=== PATIENT | male | born 1985 | race Caucasian/White ===

== ENCOUNTER → 2016-11-03 | Outpatient (CLI) | payer OTHER ==
[~2016-11-03] MED LIST: NO HOME MEDICATIONS; PROBIOTIC-MAJOR PO; PROTONIX 40MG T40 MG PO; VIBERZI100 MG PO
== END ==
LOC: COL.RAD 08:11
DX: R68.81 Early satiety (principal)
CPT/HCPCS: A9541

== ENCOUNTER → 2017-07-20 | Outpatient (CLI) | payer OTHER | LOC: COL.RAD 09:54 | DX: K44.9 Diaphragmatic hernia without obstruction or gangrene (principal); K21.9 Gastro-esophageal reflux disease without esophagitis | CPT/HCPCS: Q9967 ==

== ENCOUNTER → 2017-08-31 | Outpatient (CLI) | payer OTHER | LOC: COL.RAD 07:27 | DX: N28.89 Other specified disorders of kidney and ureter (principal) ==

== ENCOUNTER 2017-11-15 17:28 | Emergency (ER) | payer OTHER ==
[~2017-11-15] VITALS: Ht 182.9 cm; Wt 72.7 kg
[2017-11-15 17:33] VITALS: TEMP 98.2
[2017-11-15 18:08] LABS: BASO # 0.1 (0.0-0.2); BASO % 1.3 % (0.0-2.0); EOS # 0.4 (0.0-0.7); EOS % 5.9 % (0-4.0); GRAN # 4.2 (1.4-6.5); GRAN % 65.9 % (42.2-75.2); HEMATOCRIT 43.3 % (42.0-52.0); HEMOGLOBIN 14.7 g/dl (13.5-18.0); LYMPH # 1.3 (1.2-3.4); LYMPH % 20.6 % (20.0-51.0); MEAN CELL VOLUME 88 fl (80.0-100.0); MEAN CORPUSCULAR HEMOGLOBIN 30 pg (27.0-31.0); MEAN CORPUSCULAR HGB CONC 34 g/dl (33.0-37.0); MEAN PLATELET VOLUME 10.1 fl (7.4-10.4); MONO # 0.4 (0.1-0.6); MONO % 6.1 % (1.7-9.3); PLATELET COUNT 286 K/mm3 (130-400); RED BLOOD COUNT 4.91 M/mm3 (4.20-5.60); REDCELL DISTRIBUTION WIDTH-CV 13.2 % (11.5-14.5)
[2017-11-15 18:21] LABS: ALANINE AMINOTRANSFERASE 27 U/L (21-72); ALBUMIN 4.9 gm/dL (3.5-5.0); ALKALINE PHOSPHATASE 67 U/L (50-136); ANION GAP 11 mmol/L (7-16); AST,SGOT 27 U/L (15-37); BILIRUBIN,TOTAL 0.6 mg/dL (0.0-1.0); BLOOD UREA NITROGEN 15 mg/dL (9-20); CALCIUM 9.7 mg/dL (8.4-10.2); CARBON DIOXIDE 26 mmol/L (22-30); CHLORIDE 105 mmol/L (98-107); CREATININE, serum 0.84 mg/dL (0.66-1.25); GLUCOSE 114 mg/dL (74-106); LIPASE 34 U/L (23-300); POTASSIUM 3.7 mmol/L (3.4-5.0); SODIUM 142 mmol/L (137-145); TOTAL PROTEIN 7.8 gm/dL (6.4-8.2)
[2017-11-15 18:29] LABS: C-REACTIVE PROTEIN < 0.5 mg/dL (0.0-0.9)
[2017-11-15 19:16] LABS: COLLECTION METHOD CLEAN CATCH
[2017-11-15 19:21] LABS: MUCOUS Present /lpf; PH 6 (5-8); SQUAMOUS EPITHELIAL 0-2 /hpf; URINE APPEARANCE Clear; URINE BACTERIA None Seen /hpf; URINE BILIRUBIN Negative (NEGATIVE); URINE BLOOD 1+ (NEGATIVE); URINE COLOR Yellow; URINE GLUCOSE Negative (NEGATIVE); URINE KETONE Negative (NEGATIVE); URINE LEUKOCYTE ESTERASE Negative (NEGATIVE); URINE NITRATE Negative (NEGATIVE); URINE PROTEIN(semi-quant) Negative (NEGATIVE); URINE RBC 0-2 /hpf
[2017-11-15] MEDS ORDERED: NORCO 325 MG-51 TAB PO (19:33)
[2017-11-15 19:43] VITALS: BP 111/71; PULSE 70
== END 2017-11-15 19:43 | disposition home or self-care (01) ==
LOC: COL.ER 17:28
PROVIDERS: Emergency Medicine
DX: R10.9 Unspecified abdominal pain (principal); K21.9 Gastro-esophageal reflux disease without esophagitis
CPT/HCPCS: J2405; J7030; J7050; Q9967

== ENCOUNTER → 2019-06-15 | Outpatient (CLI) | payer OTHER ==
[~2019-06-15] MED LIST changes: +NORCO 325 MG-51 TAB PO
== END ==
LOC: COL.RAD 09:34
DX: R13.14 Dysphagia, pharyngoesophageal phase (principal); Z98.890 Other specified postprocedural states

== ENCOUNTER → 2019-08-17 | Outpatient (CLI) | payer OTHER | LOC: COL.RAD 07:41 | DX: K21.9 Gastro-esophageal reflux disease without esophagitis (principal); Z98.890 Other specified postprocedural states ==

== ENCOUNTER 2019-10-18 18:07 | Emergency (ER) | payer OTHER ==
[~2019-10-18] VITALS: Ht 182.9 cm; Wt 75.0 kg
[2019-10-18 18:59] LABS: BASO # 0.1 (0.0-0.2); BASO % 1.5 % (0.0-2.0); EOS # 0.4 (0.0-0.7); EOS % 5.9 % (0-4.0); GRAN % 59.1 % (42.2-75.2); HEMATOCRIT 47.1 % (42.0-52.0); HEMOGLOBIN 15.8 g/dl (13.5-18.0); LYMPH # 1.6 (1.2-3.4); LYMPH % 23.9 % (20.0-51.0); MEAN CELL VOLUME 91 fl (80.0-100.0); MEAN CORPUSCULAR HEMOGLOBIN 31 pg (27.0-31.0); MEAN CORPUSCULAR HGB CONC 34 g/dl (33.0-37.0); MONO # 0.6 (0.1-0.6); MONO % 9.5 % (1.7-9.3); PLATELET COUNT 296 K/mm3 (130-400); RED BLOOD COUNT 5.17 M/mm3 (4.20-5.60); REDCELL DISTRIBUTION WIDTH-CV 13.1 % (11.5-14.5)
[2019-10-18] MEDS ORDERED: FLONASEALLERGY NS (19:00)
[2019-10-18 19:14] LABS: ALANINE AMINOTRANSFERASE 23 U/L (21-72); ALBUMIN 4.9 gm/dL (3.5-5.0); ALKALINE PHOSPHATASE 76 U/L (50-136); ANION GAP 10 mmol/L (7-16); AST,SGOT 29 U/L (15-37); BILIRUBIN,TOTAL 0.4 mg/dL (0.0-1.0); BLOOD UREA NITROGEN 15 mg/dL (9-20); CALCIUM 9.6 mg/dL (8.4-10.2); CARBON DIOXIDE 28 mmol/L (22-30); CHLORIDE 104 mmol/L (98-107); CREATININE, serum 0.95 (0.66-1.25); GLUCOSE 90 mg/dL (74-106); LIPASE 47 U/L (23-300); POTASSIUM 4.5 mmol/L (3.4-5.0); SODIUM 142 mmol/L (137-145); TOTAL PROTEIN 8.3 gm/dL (6.4-8.2)
[2019-10-18 19:20] LABS: C-REACTIVE PROTEIN < 0.5 mg/dL (0.0-0.9)
[2019-10-18] MEDS ORDERED: MEDROL 4MG DOSPA4 MG PO (20:10)
[2019-10-18 20:30] VITALS: BP 105/71; PULSE 87; TEMP 98.2
== END 2019-10-18 20:30 | disposition home or self-care (01) ==
LOC: COL.ER 18:07
PROVIDERS: Physician Assistant
DX: R10.84 Generalized abdominal pain (principal); R09.81 Nasal congestion; Z79.51 Long term (current) use of inhaled steroids
CPT/HCPCS: J1885; J2765; J7030; J7512

== ENCOUNTER 2019-10-22 03:48 | Emergency (ER) | payer OTHER ==
[~2019-10-22] VITALS: Ht 182.9 cm; Wt 75.0 kg
[~2019-10-22 03:48] MED LIST changes: +FLONASEALLERGY NS; +MEDROL 4MG DOSPA4 MG PO
[2019-10-22 03:53] VITALS: TEMP 97.9
[2019-10-22 06:41] VITALS: BP 104/81; PULSE 72
== END 2019-10-22 06:42 | disposition home or self-care (01) ==
LOC: COL.ER 03:48
DX: R06.00 Dyspnea, unspecified (principal); F41.9 Anxiety disorder, unspecified

== ENCOUNTER → 2019-11-08 | Outpatient (CLI) | payer OTHER | LOC: COL.RAD 09:30 | DX: R06.02 Shortness of breath (principal) ==

== ENCOUNTER 2021-04-13 02:36 | Emergency (ER) | payer OTHER ==
[~2021-04-13] VITALS: Ht 182.9 cm; Wt 75.0 kg
[2021-04-13 02:40] VITALS: TEMP 98.5
[2021-04-13 02:57] LABS: BASO # 0.1 (0.0-0.2); BASO % 1.4 % (0.0-2.0); EOS # 0.3 (0.0-0.7); GRAN % 71.4 % (42.2-75.2); HEMATOCRIT 43.3 % (42.0-52.0); HEMOGLOBIN 14.2 g/dl (13.5-18.0); LYMPH # 1.2 (1.2-3.4); LYMPH % 14.8 % (20.0-51.0); MEAN CELL VOLUME 90 fl (80.0-100.0); MEAN CORPUSCULAR HEMOGLOBIN 30 pg (27.0-31.0); MEAN CORPUSCULAR HGB CONC 33 g/dl (33.0-37.0); MEAN PLATELET VOLUME 10.3 fl (7.4-10.4); MONO # 0.8 (0.1-0.6); MONO % 9.3 % (1.7-9.3); PLATELET COUNT 284 K/mm3 (130-400); RED BLOOD COUNT 4.81 M/mm3 (4.20-5.60); REDCELL DISTRIBUTION WIDTH-CV 13.1 % (11.5-14.5)
[2021-04-13 03:10] LABS: ALANINE AMINOTRANSFERASE 23 U/L (4-49); ALBUMIN 4.6 gm/dL (3.5-5.0); ALKALINE PHOSPHATASE 98 U/L (50-136); ANION GAP 7 mmol/L (7-16); AST,SGOT 41 U/L (15-37); BILIRUBIN,TOTAL 0.3 mg/dL (0.0-1.0); BLOOD UREA NITROGEN 10 mg/dL (9-20); CALCIUM 9.1 mg/dL (8.4-10.2); CARBON DIOXIDE 28 mmol/L (22-30); CHLORIDE 107 mmol/L (98-107); GLUCOSE 119 mg/dL (74-106); LIPASE 114 U/L (23-300); SODIUM 142 mmol/L (137-145); TOTAL PROTEIN 8.2 gm/dL (6.4-8.2)
[2021-04-13 03:38] LABS: C-REACTIVE PROTEIN < 0.5 mg/dL (0.0-0.9)
[2021-04-13] MEDS ORDERED: CARAFATE 1GM1 G PO (03:59)
[2021-04-13] MEDS ORDERED: ZOFRAN ODT4 MG PO (03:59)
[2021-04-13 05:03] VITALS: BP 122/86; PULSE 68
== END 2021-04-13 05:15 | disposition home or self-care (01) ==
LOC: COL.ER 02:36
PROVIDERS: Emergency Medicine
DX: K29.70 Gastritis, unspecified, without bleeding (principal)
CPT/HCPCS: J2270; J2550; J3010; J7030